=== PATIENT | male | born 1985 | race Caucasian/White ===

== ENCOUNTER 2017-05-06 23:45 | Emergency (ER) | payer OTHER ==
[2017-05-06 23:54] VITALS: BP 121/90; PULSE 80; RESP 16; TEMP 97.5; O2SAT 98
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
== END 2017-05-07 00:10 | disposition home or self-care (01) ==
LOC: EDUNIT#
DX: S60.511A Abrasion of right hand, initial encounter (principal); V49.50XA Passenger injured in collision with unspecified motor vehicles in traffic accident, initial encounter; Y92.410 Unspecified street and highway as the place of occurrence of the external cause